=== PATIENT | male | born 1945 | race Caucasian/White ===

== ENCOUNTER → 2024-02-02 | Outpatient (CLI) | payer OTHER ==
[~2024-02-02] MED LIST: ACET1TAB55 PO; ALBU2.5V10 INH; ALBU6.7H6 INH; ASPI81TA26 PO; ATOR1TAB21 PO; CLOP75TA2 PO; D3 H10002 PO; FLOM0.4C39 PO; INSULANT SC; LIDOCAINE 1% MDV 20ML VIAL As Ordered ONE; LORA-243 PO; LOSA100T8 PO; METF500T13 PO; METH-1164 PO; NITR0.4S14 SL; PANT40TA29 PO; SYMB16INH INH; VIST25CA PO
== END ==
LOC: M IRPRO 10:04
PROVIDERS: ATTEND Nurse Practitioner Family
DX: K76.89 Other specified diseases of liver (principal); R91.8 Other nonspecific abnormal finding of lung field

== ENCOUNTER 2024-02-08 08:22 | Inpatient (IN) | payer OTHER ==
[2024-02-08] VITALS (22 sets, daily range): BP systolic 125–157; BP diastolic 70–84; TEMP 96.9–97.8; O2SAT 91–97
[~2024-02-08] VITALS: Ht 170.2 cm; Wt 80.1 kg
[~2024-02-08 08:22] MED LIST changes: -LIDOCAINE 1% MDV 20ML VIAL As Ordered ONE
[2024-02-08] MEDS ORDERED: LIDOCAINE 1% MDV 20ML VIAL As Ordered ONE (08:23)
[2024-02-08] MEDS ORDERED: HOME MED LIST COMPLETE! XX SCH (09:20)
[2024-02-08] MEDS ORDERED: flumazeniL 0.5MG/5ML VIAL As Ordered ONE (12:18)
[2024-02-08] MEDS ORDERED: MIDAZOLAM INJ 2MG/2ML VIAL As Ordered ONE (12:18)
[2024-02-08] MEDS: MIDAZOLAM INJ 2MG/2ML VIAL IV STA (12:43)
[2024-02-08] MEDS: HEPARIN SOD (PORCINE) 5000UNITS/ML 1ML VIAL/SYRINGE SC SCH (12:55)
[2024-02-08] MEDS ORDERED: BISACODYL 10MG SUPP PR PRN (13:00)
[2024-02-08] MEDS ORDERED: LEVALBUTEROL 1.25MG 0.5ML CONCENTRATE NEB NEB PRN (13:00)
[2024-02-08] MEDS ORDERED: PERCOCET 5MG/325MG TAB PO PRN ×2 (13:00)
[2024-02-08] MEDS ORDERED: KCL 20MEQ IN D5/NS 1000ML 1,000 ML IV SCH (13:00)
[2024-02-08] MEDS ORDERED: ONDANSETRON 4MG 2ML VIAL IV PRN (13:00)
[2024-02-08] MEDS ORDERED: GLUCOSE 4GM CHEW TABLET PO PRN (13:10)
[2024-02-08] MEDS ORDERED: GLUCAGON INJ 1MG VIAL SC PRN (13:10)
[2024-02-08] MEDS ORDERED: DEXTROSE 50% 50ML SYRINGE IV PRN (13:10)
[2024-02-08 13:26] LABS: BASO # 0.1 10^3/uL (0.0-0.2); BASO % 0.8 % (0.0-1.0); EOS # 0.2 10^3/uL (0.0-0.5); EOS % 2.4 % (0.0-3.0); HEMATOCRIT 46.5 % (42.0-52.0); HEMOGLOBIN 15.4 g/dl (13.5-17.5); LYMPH % 22.5 % (24.0-44.0); MEAN CORPUSCULAR HEMOGLOBIN 29.7 pg (27.0-33.0); MEAN CORPUSCULAR HGB CONC 33.1 g/dl (32.0-36.5); MEAN CORPUSCULAR VOLUME 89.6 fl (80.0-96.0); MONO # 0.7 10^3/uL (0.0-0.8); MONO % 8.4 % (2.0-8.0); NEUTROPHILS # 5.7 10^3/uL (1.5-8.5); NEUTROPHILS % 65.3 % (36.0-66.0); RED BLOOD COUNT 5.19 10^6/uL (4.30-6.10); WHITE BLOOD COUNT 8.7 10^3/uL (4.0-10.0)
[2024-02-08 14:07] LABS: BLOOD UREA NITROGEN 18 MG/DL (9-23); CALCIUM LEVEL 9.1 MG/DL (8.3-10.6); CARBON DIOXIDE LEVEL 23 MMOL/L (20-31); CHLORIDE LEVEL 106 MMOL/L (98-107); CREATININE FOR GFR 0.81 MG/DL (0.70-1.30); GLOMERULAR FILTRATION RATE > 60.0 (>35); GLUCOSE, FASTING 140 MG/DL (74-106); POTASSIUM SERUM 4.5 MMOL/L (3.5-5.1); SODIUM LEVEL 140 MMOL/L (136-145)
[2024-02-08] MEDS: KETOROLAC 30 MG/ML 1ML VIAL IV SCH (15:04)
[2024-02-08 15:10] LABS: PLATELET COUNT, AUTOMATED 324 10^3/uL (150-450)
[2024-02-08] MEDS: LEVALBUTEROL 1.25MG 0.5ML CONCENTRATE NEB NEB SCH (16:01)
[2024-02-08] MEDS: INSULIN LISPRO (NovoLOG) PER UNIT SC SCH ×2 (17:59→21:00)
[2024-02-08] MEDS: DOCUSATE SODIUM 100MG CAPSULE PO SCH (21:00)
[2024-02-08] MEDS: ATORVASTATIN 20 MG TAB PO SCH (21:28)
[2024-02-08] MEDS: PANTOPRAZOLE 40MG TAB (PROTONIX) PO SCH (21:28)
[2024-02-08] MEDS: LEVEMIR (INSULIN DETEMIR) 1 UNITS/0.01ML SC SCH (21:29)
[2024-02-09] VITALS (12 sets, daily range): BP systolic 121–142; BP diastolic 61–83; TEMP 97.7–98.4; O2SAT 90–96
[2024-02-09 05:13] LABS: BASO # 0.1 10^3/uL (0.0-0.2); BASO % 0.6 % (0.0-1.0); EOS # 0.3 10^3/uL (0.0-0.5); EOS % 2.7 % (0.0-3.0); HEMATOCRIT 42.1 % (42.0-52.0); HEMOGLOBIN 13.9 g/dl (13.5-17.5); LYMPH # 2.2 10^3/uL (1.5-5.0); LYMPH % 23.7 % (24.0-44.0); MEAN CORPUSCULAR HEMOGLOBIN 29.1 pg (27.0-33.0); MEAN CORPUSCULAR VOLUME 88.1 fl (80.0-96.0); MONO # 0.9 10^3/uL (0.0-0.8); MONO % 9.6 % (2.0-8.0); NEUTROPHILS # 5.8 10^3/uL (1.5-8.5); PLATELET COUNT, AUTOMATED 311 10^3/uL (150-450); RED BLOOD COUNT 4.78 10^6/uL (4.30-6.10); WHITE BLOOD COUNT 9.3 10^3/uL (4.0-10.0)
[2024-02-09 05:43] LABS: BLOOD UREA NITROGEN 26 MG/DL (9-23); CALCIUM LEVEL 9.1 MG/DL (8.3-10.6); CARBON DIOXIDE LEVEL 26 MMOL/L (20-31); CHLORIDE LEVEL 107 MMOL/L (98-107); CREATININE FOR GFR 1.01 MG/DL (0.70-1.30); GLOMERULAR FILTRATION RATE > 60.0 (>35); GLUCOSE, FASTING 120 MG/DL (74-106); POTASSIUM SERUM 4.5 MMOL/L (3.5-5.1); SODIUM LEVEL 138 MMOL/L (136-145)
[2024-02-09] MEDS: SYMBICORT 160/4.5MCG INHALER 6GM INH SCH (08:03)
[2024-02-09] MEDS: MOM 30ML SUSPENSION UDC PO SCH (09:00)
[2024-02-09] MEDS ORDERED: PANTOPRAZOLE 40MG TAB (PROTONIX) PO SCH (09:00)
[2024-02-09] MEDS ORDERED: PANTOPRAZOLE 40MG VIAL IV SCH (09:00)
[2024-02-09] MEDS: ASPIRIN 81MG ENTERIC TABLET PO SCH (09:48)
[2024-02-09] MEDS: TAMSULOSIN 0.4 MG CAP PO SCH (09:48)
[2024-02-09] MEDS: LOSARTAN 50MG TABLET PO SCH (09:49)
[2024-02-09] MEDS: KETOROLAC 30 MG/ML 1ML VIAL IV SCH (10:48)
[2024-02-09] MEDS: methocarbamoL 500 MG TAB PO SCH (13:45)
[2024-02-10] VITALS (7 sets, daily range): BP systolic 111–143; BP diastolic 55–79; TEMP 97.5–98.4; O2SAT 91–94
[2024-02-10 06:19] LABS: BLOOD UREA NITROGEN 29 MG/DL (9-23); CALCIUM LEVEL 8.7 MG/DL (8.3-10.6); CARBON DIOXIDE LEVEL 25 MMOL/L (20-31); CHLORIDE LEVEL 108 MMOL/L (98-107); CREATININE FOR GFR 1.05 MG/DL (0.70-1.30); GLOMERULAR FILTRATION RATE > 60.0 (>35); GLUCOSE, FASTING 122 MG/DL (74-106); POTASSIUM SERUM 4.4 MMOL/L (3.5-5.1); SODIUM LEVEL 138 MMOL/L (136-145)
[2024-02-10] MEDS: KETOROLAC 30 MG/ML 1ML VIAL IV SCH (21:55)
[2024-02-11] VITALS (9 sets, daily range): BP systolic 112–140; BP diastolic 57–71; TEMP 96.7–98.1; O2SAT 90–97
[2024-02-11 07:58] LABS: BLOOD UREA NITROGEN 27 MG/DL (9-23); CALCIUM LEVEL 9.1 MG/DL (8.3-10.6); CARBON DIOXIDE LEVEL 27 MMOL/L (20-31); CHLORIDE LEVEL 107 MMOL/L (98-107); CREATININE FOR GFR 1.02 MG/DL (0.70-1.30); GLOMERULAR FILTRATION RATE > 60.0 (>35); GLUCOSE, FASTING 125 MG/DL (74-106); POTASSIUM SERUM 4.4 MMOL/L (3.5-5.1); SODIUM LEVEL 140 MMOL/L (136-145)
[2024-02-11] MEDS: ACETAMINOPHEN TAB 650MG DOSE (2X325MG) PO PRN (13:38)
[2024-02-11] MEDS ORDERED: BENZONATATE 100MG CAPSULE PO PRN (16:00)
[2024-02-11] MEDS ORDERED: BENZONATATE 100MG CAPSULE PO SCH (16:00)
[2024-02-11] MEDS: LEVEMIR (INSULIN DETEMIR) 1 UNITS/0.01ML SC SCH (21:00)
[2024-02-12] VITALS (17 sets, daily range): BP systolic 120–155; BP diastolic 59–81; TEMP 97.1–101.4; O2SAT 90–97
[2024-02-12 06:58] LABS: BLOOD UREA NITROGEN 24 MG/DL (9-23); CALCIUM LEVEL 8.8 MG/DL (8.3-10.6); CARBON DIOXIDE LEVEL 28 MMOL/L (20-31); CHLORIDE LEVEL 109 MMOL/L (98-107); CREATININE FOR GFR 1.06 MG/DL (0.70-1.30); GLOMERULAR FILTRATION RATE > 60.0 (>35); GLUCOSE, FASTING 147 MG/DL (74-106); POTASSIUM SERUM 4.6 MMOL/L (3.5-5.1); SODIUM LEVEL 143 MMOL/L (136-145)
[2024-02-12 11:49] LABS: PROCALCITONIN 0.04 ng/ml
[2024-02-12 12:09] LABS: HEMATOCRIT 41.2 % (42.0-52.0); HEMOGLOBIN 13.5 g/dl (13.5-17.5); MEAN CORPUSCULAR HEMOGLOBIN 29.1 pg (27.0-33.0); MEAN CORPUSCULAR HGB CONC 32.8 g/dl (32.0-36.5); MEAN CORPUSCULAR VOLUME 88.8 fl (80.0-96.0); PLATELET COUNT, AUTOMATED 311 10^3/uL (150-450); RED BLOOD COUNT 4.64 10^6/uL (4.30-6.10); WHITE BLOOD COUNT 10.9 10^3/uL (4.0-10.0)
[2024-02-12 12:10] LABS: BASO % 0.4 % (0.0-1.0); EOS % 2.4 % (0.0-3.0); LYMPH # 1.1 10^3/uL (1.5-5.0); MONO % 9.6 % (2.0-8.0); NEUTROPHILS # 8.4 10^3/uL (1.5-8.5); NEUTROPHILS % 77.2 % (36.0-66.0)
[2024-02-12 12:11] LABS: EOS # 0.3 10^3/uL (0.0-0.5)
[2024-02-12 12:15] LABS: BASO % 0.4 % (0.0-1.0); EOS # 0.3 10^3/uL (0.0-0.5); EOS % 3.4 % (0.0-3.0); HEMATOCRIT 41.9 % (42.0-52.0); HEMOGLOBIN 13.5 g/dl (13.5-17.5); LYMPH # 1.2 10^3/uL (1.5-5.0); LYMPH % 13.7 % (24.0-44.0); MEAN CORPUSCULAR HEMOGLOBIN 29.3 pg (27.0-33.0); MEAN CORPUSCULAR HGB CONC 32.2 g/dl (32.0-36.5); MEAN CORPUSCULAR VOLUME 91.1 fl (80.0-96.0); NEUTROPHILS # 6.3 10^3/uL (1.5-8.5); NEUTROPHILS % 71.1 % (36.0-66.0); PLATELET COUNT, AUTOMATED 324 10^3/uL (150-450); WHITE BLOOD COUNT 8.9 10^3/uL (4.0-10.0)
[2024-02-12 22:12] LABS: HEMOGLOBIN 13.8 g/dl (13.5-17.5); RED BLOOD COUNT 4.63 10^6/uL (4.30-6.10); WHITE BLOOD COUNT 12.9 10^3/uL (4.0-10.0)
[2024-02-12 22:13] LABS: BASO % 0.3 % (0.0-1.0); EOS % 0.9 % (0.0-3.0); HEMATOCRIT 40.8 % (42.0-52.0); LYMPH % 11.8 % (24.0-44.0); MEAN CORPUSCULAR HEMOGLOBIN 29.8 pg (27.0-33.0); MEAN CORPUSCULAR HGB CONC 33.8 g/dl (32.0-36.5); MEAN CORPUSCULAR VOLUME 88.1 fl (80.0-96.0); MONO % 10.1 % (2.0-8.0); NEUTROPHILS % 76.5 % (36.0-66.0); PLATELET COUNT, AUTOMATED 305 10^3/uL (150-450)
[2024-02-12 22:14] LABS: EOS # 0.1 10^3/uL (0.0-0.5); LYMPH # 1.5 10^3/uL (1.5-5.0); MONO # 1.3 10^3/uL (0.0-0.8); NEUTROPHILS # 9.8 10^3/uL (1.5-8.5)
[2024-02-12] MEDS: PIPERACILLIN/TAZOBACTAM SOD 4.5 GM in D5W MINI-BAG PLUS 50 ML IV SCH (22:51)
[2024-02-12] MEDS: NS 250 ML IV SCH (23:01)
[2024-02-13] VITALS (13 sets, daily range): BP systolic 108–142; BP diastolic 56–72; TEMP 97.6–99.7; O2SAT 92–99
[2024-02-13 05:26] LABS: HEMATOCRIT 38.5 % (42.0-52.0); HEMOGLOBIN 12.9 g/dl (13.5-17.5); MEAN CORPUSCULAR HEMOGLOBIN 29.5 pg (27.0-33.0); MEAN CORPUSCULAR HGB CONC 33.5 g/dl (32.0-36.5); MEAN CORPUSCULAR VOLUME 87.9 fl (80.0-96.0); RED BLOOD COUNT 4.38 10^6/uL (4.30-6.10); WHITE BLOOD COUNT 12.4 10^3/uL (4.0-10.0)
[2024-02-13 05:27] LABS: BASO % 0.3 % (0.0-1.0); EOS # 0.2 10^3/uL (0.0-0.5); EOS % 1.8 % (0.0-3.0); LYMPH # 1.2 10^3/uL (1.5-5.0); LYMPH % 9.9 % (24.0-44.0); MONO # 1.6 10^3/uL (0.0-0.8); MONO % 12.6 % (2.0-8.0); NEUTROPHILS # 9.3 10^3/uL (1.5-8.5); NEUTROPHILS % 74.9 % (36.0-66.0); PLATELET COUNT, AUTOMATED 298 10^3/uL (150-450)
[2024-02-13 05:48] LABS: BLOOD UREA NITROGEN 17 MG/DL (9-23); CALCIUM LEVEL 8.4 MG/DL (8.3-10.6); CARBON DIOXIDE LEVEL 23 MMOL/L (20-31); CHLORIDE LEVEL 108 MMOL/L (98-107); CREATININE FOR GFR 0.92 MG/DL (0.70-1.30); GLOMERULAR FILTRATION RATE > 60.0 (>35); GLUCOSE, FASTING 171 MG/DL (74-106); POTASSIUM SERUM 3.8 MMOL/L (3.5-5.1); SODIUM LEVEL 140 MMOL/L (136-145)
[2024-02-13] MEDS: KETOROLAC 30 MG/ML 1ML VIAL IV SCH (09:45)
[2024-02-14 00:02] VITALS: BP 116/60; TEMP 98.1; O2SAT 94
[2024-02-14 04:15] VITALS: BP 128/72; TEMP 97.6; O2SAT 96
[2024-02-14 05:38] LABS: BASO % 0.4 % (0.0-1.0); EOS # 0.3 10^3/uL (0.0-0.5); EOS % 2.8 % (0.0-3.0); HEMATOCRIT 36.4 % (42.0-52.0); LYMPH # 1.7 10^3/uL (1.5-5.0); LYMPH % 15.2 % (24.0-44.0); MEAN CORPUSCULAR HEMOGLOBIN 29.1 pg (27.0-33.0); MEAN CORPUSCULAR VOLUME 88.3 fl (80.0-96.0); MONO # 1.2 10^3/uL (0.0-0.8); MONO % 11.1 % (2.0-8.0); NEUTROPHILS # 7.7 10^3/uL (1.5-8.5); NEUTROPHILS % 70.1 % (36.0-66.0); PLATELET COUNT, AUTOMATED 268 10^3/uL (150-450); RED BLOOD COUNT 4.12 10^6/uL (4.30-6.10)
[2024-02-14 06:11] LABS: BLOOD UREA NITROGEN 18 MG/DL (9-23); CALCIUM LEVEL 8.3 MG/DL (8.3-10.6); CARBON DIOXIDE LEVEL 24 MMOL/L (20-31); CHLORIDE LEVEL 111 MMOL/L (98-107); CREATININE FOR GFR 0.99 MG/DL (0.70-1.30); GLOMERULAR FILTRATION RATE > 60.0 (>35); GLUCOSE, FASTING 143 MG/DL (74-106); POTASSIUM SERUM 3.9 MMOL/L (3.5-5.1); SODIUM LEVEL 143 MMOL/L (136-145)
[2024-02-14 08:06] VITALS: BP 120/57; TEMP 98.2; O2SAT 95
[2024-02-14 09:33] VITALS: BP 113/57
[2024-02-14] MEDS ORDERED: AMOX875T2 PO (09:53)
[2024-02-14 10:31] VITALS: O2SAT 91
== END 2024-02-14 12:47 | disposition home or self-care (01) | DRG 143 ==
LOC: M IRPRO 08:22 → M ED INP 12:52 → M PCU 14:38
PROVIDERS: ADMIT Internal Medicine; ATTEND Internal Medicine
PROC: 0W9B3ZZ Drainage of Left Pleural Cavity, Percutaneous Approach (ICD-10-PCS; principal; 2024-02-08 09:00)
PROC: 0BB83ZX Excision of Left Upper Lobe Bronchus, Percutaneous Approach, Diagnostic (ICD-10-PCS; 2024-02-09)
DX: J95.811 Postprocedural pneumothorax (principal); E78.5 Hyperlipidemia, unspecified; K21.9 Gastro-esophageal reflux disease without esophagitis; J44.9 Chronic obstructive pulmonary disease, unspecified; E11.40 Type 2 diabetes mellitus with diabetic neuropathy, unspecified; L03.313 Cellulitis of chest wall; M54.59 Other low back pain; N40.0 Benign prostatic hyperplasia without lower urinary tract symptoms; C34.12 Malignant neoplasm of upper lobe, left bronchus or lung; I10 Essential (primary) hypertension; I25.10 Atherosclerotic heart disease of native coronary artery without angina pectoris; F41.9 Anxiety disorder, unspecified; K76.0 Fatty (change of) liver, not elsewhere classified; Z79.899 Other long term (current) drug therapy; Z79.82 Long term (current) use of aspirin; Z79.4 Long term (current) use of insulin; J86.0 Pyothorax with fistula; K59.00 Constipation, unspecified